=== PATIENT | female | born 1995 | race African-American/Black ===

== ENCOUNTER 2025-04-30 13:20 | Outpatient (CLI) | payer OTHER, SELFPAY ==
--- NOTE | 2025-04-30 13:28 | ECG_ITS ---
Test Date: 2025-04-30 13:36:48 Measurements Intervals [place] Rate: 70 P: 29 CT: 153 QRS: 10 QRSD: 105 T: 223 QT: 439 QTc: 474 Interpretive Statements SINUS RHYTHM MODERATE T-WAVE ABNORMALITY, CONSIDER ANTEROLATERAL ISCHEMIA [-0.1+ mV T-WAVE IN V3-V6] ABNORMAL ECG No previous ECG available for comparison Electronically Signed On 05-01-2025 07:59:54 [employer] by Hernandez Kapadia M.D.
== END 2025-04-30 13:21 | disposition home or self-care (01) ==
LOC: ANHLAB 13:21 → ANHCARD 13:22
PROVIDERS: PCP Nurse Practitioner Family; Visit Provider Nurse Practitioner Family
DX: R73.03 Prediabetes (principal); Z01.818 Encounter for other preprocedural examination; R94.31 Abnormal electrocardiogram [ECG] [EKG]
CPT/HCPCS: 93005